=== PATIENT | female | born 1990 | race Caucasian/White ===

== ENCOUNTER 2016-12-26 12:20 | Emergency (ER) | payer BC ==
[~2016-12-26 12:20] MED LIST: BACTRIM DS TABL1 TA1 PO; FLEXERIL10 MG PO; HYDROMET SYRUP480 ML PO; LOMOTIL TABLET1 TAB PO; MOTRIN600 M1 PO; NO MEDICATIONS; PREDNISONE PO; VOLTAREN75 MG PO; ZITHROMAX PO
== END 2016-12-26 12:53 | disposition home or self-care (01) ==
LOC: SED 12:20
DX: H57.8 Other specified disorders of eye and adnexa (principal); Z88.1 Allergy status to other antibiotic agents
CPT/HCPCS: 99283